=== PATIENT | female | born 1985 | race Caucasian/White ===

== ENCOUNTER 2018-03-28 10:18 | Emergency (ER) | payer OTHER ==
[~2018-03-28] VITALS: Ht 160 cm; Wt 73.5 kg
[2018-03-28 10:21] VITALS: BP 132/86
--- NOTE | 2018-03-28 10:26 | NUR ---
PT AMBUALTES W/ STEADY GAIT TO BED 6 AT THIS TIME W/ STEADY GAIT. REPORT GIVEN TO COREY SHERIFF
--- NOTE | 2018-03-28 10:27 | NUR ---
32 YO F BIB W/ C/O VAGINAL BLEEDING X THIS MORNING. PT IS 14 WEEKS . AO. PT REPORTS SHE HAD A MILAN OF BLOOD WHEN SHE WOKE UP THIS MORNING. DOES NOT THINK SHE IS STILL BLEEDING, WANTS TO GET CHECKED OUT. HX THYROID CX 2008. RX SYNTHROID, ASA 81MG X2 DAY, MAGNESIUM, . DENIES N/V/D; SKIN IS PINK/WARM/DRY; AAOX4 WITH EVEN AND STEADY GAIT; LUNGS CLEAR BL; HR EVEN AND REGULAR; PT DENIES ANY FEVER, CP, SOB, OR COUGH AT THIS TIME; PATIENT STATES PAIN OF 0/10 AT THIS TIME. PATIENT POSITIONED FOR COMFORT; HOB ELEVATED; BEDRAILS UP X2; BED DOWN. ER MD MADE AWARE OF PT STATUS. [facility]HS 145 MID LOWER ABDOMEN.
[2018-03-28 10:54] VITALS: BP 108/75
--- NOTE | 2018-03-28 10:54 | NUR ---
Patient discharged with v/s stable. Written and verbal after care instructions given and explained. Patient verbalized understanding. Ambulatory with steady gait. All questions addressed prior to discharge. Advised to follow up with PMD.
== END 2018-03-28 10:54 | disposition home or self-care (01) ==
LOC: MED 10:18
DX: O20.0 Threatened abortion (principal); Z3A.14 14 weeks gestation of pregnancy; Z85.850 Personal history of malignant neoplasm of thyroid
CPT/HCPCS: 81002; 81025; 99282